=== PATIENT | male | born 1980 | race Caucasian/White ===

== ENCOUNTER 2017-12-20 19:44 | Emergency (ER) | payer OTHER ==
[2017-12-20 19:51] VITALS: BP 131/69
--- NOTE | 2017-12-20 20:30 | ED Physician Documentation ---
PD HPI HEENT - Stated complaint Stated Complaint: THROAT PAIN/EAR PAIN - Chief complaint Chief Complaint: Heent - History obtained from History obtained from: Patient - History of Present Illness Timing - onset: How many weeks ago (1.5-2) Timing - duration: Weeks Timing - details: Gradual onset Location: Right ear, Throat Improves: Nothing Worsens: Swalllowing Associated symptoms: No: Fever, Congestion, Cough Recently seen: Clinic (evaluated at [facility] 1.5 weeks ago, strep swab resulted (-)) - Additional information Additional information: c/o 1.5-2 weeks of sore throat worse with swallowing, developed right ear pain few days ago that has become severe Review of Systems Constitutional: denies: Fever, Chills, Sweats Ears: reports: Ear pain Throat: reports: Sore throat Respiratory: denies: Cough PD PAST MEDICAL HISTORY - Past Medical History Cardiovascular: None Respiratory: None Endocrine/Autoimmune: None GI: None : None HEENT: None Psych: None Musculoskeletal: Other Derm: Other - Past Surgical History Past Surgical History: Yes General: Other - Present Medications Home Medications: Ambulatory Orders Medication Instructions Recorded Confirmed Fluconazole [Diflucan] 150 mg PO 05/16/14 05/16/14 Amoxicillin 500 mg PO BID #14 capsule 12/20/17 Ibuprofen 600 mg PO Q6HR PRN #20 tablet 12/20/17 - Allergies Allergies/Adverse Reactions: Allergies Allergy/AdvReac Type Severity Reaction Status Date / Time No Known Drug Allergies Allergy Verified 12/20/17 19:52 - Social History Does the pt smoke?: Yes Smoking Status: Current every day smoker Does the pt drink ETOH?: Yes - Immunizations Immunizations are current?: Yes PD ED PE NORMAL - Vitals Vital signs reviewed: Yes - General General: Alert and oriented X 3, No acute distress, Well developed/nourished - HEENT HEENT: Moist mucous membranes, Pharynx benign - Neck Neck: Supple, no meningeal sign PD ED PE EXPANDED - HEENT HEENT: R TM red, R TM loss of landmarks Results - Vitals Vitals: Vital Signs - 24 hr 12/20/17 19:48 Temperature 37.0 C Heart Rate 86 Respiratory 16 Rate Blood Pressure 131/69 H O2 Saturation 97 Oxygen O2 Source Room air PD MEDICAL DECISION MAKING - ED course Complexity details: considered differential, d/w patient Departure - Departure Disposition: 01 Home, Self Care Clinical Impression: Pharyngitis, Otitis media, right Condition: Good Instructions: ED Otitis Media Acute Adult Follow-Up: MARY CAMERON [Primary Care Provider] - (3-4 days if not improving) Prescriptions: Ibuprofen 600 mg PO Q6HR PRN #20 tablet PRN Reason: Pain Amoxicillin 500 mg PO BID #14 capsule Discharge Date/Time: 12/20/17 20:57
[2017-12-20] MEDS ORDERED: AMOXICILLIN 250 MG CAPSULE PO STA (20:49)
[2017-12-20] MEDS ORDERED: DEXAMETHASONE 10 MG/ML VIAL PO STA (20:50)
[2017-12-20] MEDS ORDERED: HYDROcod/ACET 5/325 Prepack 4 PO STA (20:50)
== END 2017-12-20 20:57 | disposition home or self-care (01) ==
LOC: ED 19:44
DX: J02.9 Acute pharyngitis, unspecified (principal); H66.91 Otitis media, unspecified, right ear; F17.200 Nicotine dependence, unspecified, uncomplicated
CPT/HCPCS: 99283; A9270